=== PATIENT | female | born 1940 | race African-American/Black ===

== ENCOUNTER → 2021-01-31 | Day surgery (SDC) | payer OTHER, MEDICARE ==
[~2021-01-31] MED LIST: HEPARIN NA (PORCINE) 5,000 UNITS/ML 1ML VIAL ONE; POVIDONE-IODINE OINTMENT 10% - 28.4 GM TUBE ONE
== END | disposition home or self-care (01) ==
LOC: JASU-SURG 04:25
PROVIDERS: ATTEND Surgery
DX: Z53.8 Procedure and treatment not carried out for other reasons (principal)
CPT/HCPCS: J1644